=== PATIENT | male | born 1940 | race Caucasian/White ===

== ENCOUNTER 2017-10-07 10:03 | Emergency (ER) | payer MEDICARE, BC ==
[~2017-10-07] VITALS: Ht 182.9 cm; Wt 84.0 kg
[~2017-10-07 10:03] MED LIST: ATOR20TA42 PO; OMPR20CCR PO; TUMS500C PO
[2017-10-07 10:17] VITALS: BP 123/61; PULSE 73; RESP 16; TEMP 97.7; O2SAT 99
[2017-10-07] MEDS ORDERED: ATOR20TA15 PO (10:34)
[2017-10-07 10:42] VITALS: O2SAT 96
[2017-10-07 10:46] LABS: AUTOMATED NEUTROPHIL # 3.7 TH/MM3 (1.8-7.7); BASOPHIL % 0.3 % (0.0-2.0); EOSINOPHIL # 0.2 TH/MM3 (0-0.4); EOSINOPHIL % 3.6 % (0.0-4.0); HEMATOCRIT 40.2 % (39.0-51.0); HEMOGLOBIN 13.6 GM/DL (13.0-17.0); LYMPH % 26.1 % (9.0-44.0); LYMPHOCYTE # 1.5 TH/MM3 (1.0-4.8); MEAN CELL VOLUME 91.2 FL (80.0-100.0); MEAN CORPUSCULAR HGB CONC 33.9 % (32.0-36.0); MEAN PLATELET VOLUME 6.5 FL (7.0-11.0); MONO % 9.2 % (0.0-8.0); MONOCYTE # 0.5 TH/MM3 (0-0.9); NEUT % 60.8 % (16.0-70.0); PLATELET COUNT 228 TH/MM3 (150-450); RED BLOOD COUNT 4.41 MIL/MM3 (4.50-5.90); RED CELL DISTRIBUTION WIDTH 13.9 % (11.6-17.2); WHITE BLOOD COUNT 5.9 TH/MM3 (4.0-11.0)
[2017-10-07 10:57] LABS: CHLORIDE 106 MEQ/L (98-107); SODIUM (NA) 139 MEQ/L (136-145)
[2017-10-07 10:59] LABS: CALCIUM 9.2 MG/DL (8.5-10.1)
[2017-10-07 11:00] LABS: BICARBONATE 28.8 MEQ/L (21.0-32.0); BLOOD UREA NITROGEN 17 MG/DL (7-18); GLUCOSE,RANDOM 131 MG/DL (74-106)
[2017-10-07 11:01] LABS: PROTHROMBIN TIME - PATIENT 10.2 SEC (9.8-11.6)
[2017-10-07 11:03] LABS: GLOMERULAR FILTRATION RATE 65 ML/MIN (>89)
[2017-10-07 11:07] LABS: TROPONIN I LESS THAN 0.02 NG/ML (0.02-0.05)
[2017-10-07 11:27] VITALS: BP 111/71; PULSE 60; RESP 16; O2SAT 97
--- NOTE | 2017-10-07 11:37 | PD ---
HPI Chief Complaint: Chest Pain Time Seen by Provider: 11:30 Travel History International Travel<30 days: No Contact w/Intl Traveler<30days: No Traveled to known affect area: No History of Present Illness HPI 77-year-old male presents with complaint that he had a right-sided chest pain last night around 2:00 in the morning. The pain woke him up and was quite severe for about an hour. His says he is quite ashen with the pain. He is feeling weak today he has not had a recurrence of the pain. He has had SVT in the past but he did not have palpitations last night. He there is been no unusual exertion. He has no history of smoking hypertension or diabetes. He has been hypoglycemic in the past. He has a history of prostate cancer and gets occasional Lupron and Casodex PFSH Past Medical History Hx Anticoagulant Therapy: Yes ( 81mg) Heart Rhythm Problems: No Cancer: Yes (PROSTATE AND RADATION THERAPY, HX BONE CA- NONE NOW) Cardiac Catheterization: No Cardiovascular Problems: No High Cholesterol: Yes Congestive Heart Failure: No Diabetes: No Diminished Hearing: No Endocrine: No Musculoskeletal: No Neurologic: No Psychiatric: No Respiratory: Yes (copd) Past Surgical History Cardiac Surgery: No Coronary Artery Bypass Graft: No Genitourinary Surgery: Yes (PROSTATE CA) Prostatectomy: Yes Other Surgery: Yes (ARTIFICAL SPHINCTER URINARY TRACT ) Social History Alcohol Use: Yes (1 -2 DRINKS WEEKLY) Tobacco Use: No Substance Use: No Allergies-Medications (Allergen,Severity, Reaction): Coded Allergies: No Known Allergies (Verified Adverse Reaction, Unknown, 10/07/17) Reported Meds & Prescriptions Reported Meds & Active Scripts Active Reported Atorvastatin (Atorvastatin Calcium) 20 Mg Tab 20 Mg PO HS Review of Systems General / Constitutional: No: Fever Eyes: No: Diploplia, Blurred Vision HENT: No: Headaches, Vertigo Cardiovascular: Positive: Chest Pain or Discomfort Respiratory: No: Cough, Shortness of Breath Gastrointestinal: No: Nausea Genitourinary: No: Urgency Neurologic: Positive: Weakness Endocrine: No: Heat Intolerance, Cold Intolerance Hematologic/Lymphatic: No: Easy Bruising Physical Exam Narrative GENERAL: Well-appearing male SKIN: Focused skin assessment warm/dry. HEAD: Atraumatic. Normocephalic. EYES: Pupils equal and round. No scleral icterus. No injection or drainage. ENT: No nasal bleeding or discharge. Mucous membranes pink and moist. NECK: Trachea midline. No JVD. CARDIOVASCULAR: Regular rate and rhythm. No murmur appreciated. No chest wall tenderness RESPIRATORY: No accessory muscle use. Clear to auscultation. Breath sounds equal bilaterally. GASTROINTESTINAL: Abdomen soft, non-tender, nondistended. Hepatic and splenic margins not palpable. MUSCULOSKELETAL: No obvious deformities. No clubbing. No cyanosis. No edema. NEUROLOGICAL: Awake and alert. No obvious cranial nerve deficits. Motor grossly within normal limits. Normal speech. PSYCHIATRIC: Appropriate mood and affect; insight and judgment normal. Data Data Last Documented VS Vital Signs Date Time Temp Pulse Resp B/P (MAP) Pulse Ox O2 Delivery O2 Flow Rate FiO2 10/07/17 11:27 60 16 111/71 (84) 97 Room Air 10/07/17 10:42 2.00 10/07/17 10:17 97.7 Orders Orders Electrocardiogram (10/07/17 10:31) Complete Blood Count With Diff (10/07/17 10:31) Basic Metabolic Panel (Bmp) (10/07/17 10:31) Ckmb (Isoenzyme) Profile (10/07/17 10:31) Troponin I (10/07/17 10:31) Chest, Single Ap (10/07/17 10:31) Iv Access Insert/Monitor (10/07/17 10:31) Ecg Monitoring (10/07/17 10:31) Oxygen Administration (10/07/17 10:31) Oximetry (10/07/17 10:31) Act Partial Throm Time (Ptt) (10/07/17 10:31) Prothrombin Time / Inr (Pt) (10/07/17 10:31) D-Dimer (10/07/17 11:31) Labs Laboratory Tests Test 10/07/17 10:40 10/07/17 10:41 White Blood Count 5.9 TH/MM3 Red Blood Count 4.41 MIL/MM3 Hemoglobin 13.6 GM/DL Hematocrit 40.2 % Mean Corpuscular Volume 91.2 FL Mean Corpuscular Hemoglobin 31.0 PG Mean Corpuscular Hemoglobin Concent 33.9 % Red Cell Distribution Width 13.9 % Platelet Count 228 TH/MM3 Mean Platelet Volume 6.5 FL Neutrophils (%) (Auto) 60.8 % Lymphocytes (%) (Auto) 26.1 % Monocytes (%) (Auto) 9.2 % Eosinophils (%) (Auto) 3.6 % Basophils (%) (Auto) 0.3 % Neutrophils # (Auto) 3.7 TH/MM3 Lymphocytes # (Auto) 1.5 TH/MM3 Monocytes # (Auto) 0.5 TH/MM3 Eosinophils # (Auto) 0.2 TH/MM3 Basophils # (Auto) 0.0 TH/MM3 CBC Comment DIFF FINAL Differential Comment Prothrombin Time 10.2 SEC Prothromb Time International Ratio 1.0 RATIO Activated Partial Thromboplast Time 35.5 SEC Blood Urea Nitrogen 17 MG/DL Creatinine 1.10 MG/DL Random Glucose 131 MG/DL Calcium Level 9.2 MG/DL Sodium Level 139 MEQ/L Potassium Level 4.3 MEQ/L Chloride Level 106 MEQ/L Carbon Dioxide Level 28.8 MEQ/L Anion Gap 4 MEQ/L Estimat Glomerular Filtration Rate 65 ML/MIN Total Creatine Kinase 50 U/L Troponin I LESS THAN 0.02 NG/ML D-Dimer Quantitative (PE/DVT) 0.51 MG/L FEU [facility] Medical Decision Making Medical Screen Exam Complete: Yes Emergency Medical Condition: Yes Medical Record Reviewed: Yes Differential Diagnosis Potential includes PE, chest wall pain, coronary artery disease Narrative Course EKG and troponin are negative. Pain would be very took atypical for coronary artery disease and that was on the right side in the axilla. A d-dimer corrected for age is negative. Chest x-ray negative. Patient is stable for discharge etiology for the pain has not been determined but he looks well now and the pain has resolved. X-ray is read as question of subtle airspace density in the right upper lobe. The patient states that he has spots on his lungs related to asbestosis. I do not think this would explain the pain Diagnosis Primary Impression: Atypical chest pain Disposition: DISCHARGE HOME Condition: Stable Agapito Melgoza MD Oct 07, 2017 11:37
--- NOTE | 2017-10-07 11:51 | RADRPT ---
EXAM DATE/TIME: 10/07/2017 10:38 [facility] COMPARISON: CHEST PA & LAT, October 07, 2012, 21:41. INDICATIONS : Right chest pain radiating to right shoulder. MEDICAL HISTORY : Chronic obstructive pulmonary disease. Hypercholesterolemia. Carcinoma, prostatic. Radiation ther apy. Hx bone CA. Asbestosis. SURGICAL HISTORY : Prostatectomy. Artificial sphincter in urinary tract. ENCOUNTER: Initial ACUITY: 1 day PAIN SCORE: 6/10 LOCATION: Right chest FINDINGS: Portable upright AP view of the chest demonstrates a normal-sized cardiac silhouette. There is a pote ntial subtle airspace opacity in the right upper lung zone. No pleural effusion or pneumothorax is id entified. The bones and soft tissues demonstrate no acute finding. CONCLUSION: Subtle potential airspace opacity in the right upper lobe. Otherwise, no acute finding is identified. Willi Beckman MD on October 07, 2017 at 11:47 Board Certified Radiologist. This report was verified electronically.
[2017-10-07 13:11] VITALS: BP 112/76; PULSE 67; RESP 16; O2SAT 99
--- NOTE | 2017-10-07 18:47 | EKG ---
Date Performed: 10/07/2017 Time Performed: 10:11:31 PTAGE: 77 years EKG: Sinus rhythm INFERIOR MYOCARDIAL INFARCTION Since the previous tracing, no significant change noted ABNORMAL ECG PREVIOUS TRACING : 10/08/2012 03.04 DOCTOR: Luc Martinez Interpretating Date/Time 10/07/2017 18:44:51
== END 2017-10-07 13:10 | disposition home or self-care (01) ==
LOC: PHED 10:03
DX: R07.89 Other chest pain (principal); R94.31 Abnormal electrocardiogram [ECG] [EKG]; E78.00 Pure hypercholesterolemia, unspecified; J44.9 Chronic obstructive pulmonary disease, unspecified; Z85.46 Personal history of malignant neoplasm of prostate
CPT/HCPCS: 71045; 80048; 82550; 84484; 85025; 85379; 85610; 85730; 93005; 99285